=== PATIENT | male | born 1945 | race Caucasian/White ===

== ENCOUNTER → 2018-08-10 | Outpatient (CLI) | payer MEDICARE, OTHER ==
--- NOTE | 2018-08-10 14:48 | RADIOLOGY REPORT (SQ) ---
EXAM DESCRIPTION: NM 3 PHASE BONE SCAN COMPLETED DATE/TIME: 08/10/2018 2:30 pm REASON FOR STUDY: STRESS FX, RT FOOT, INITIAL ENCOUNTER FOR FRACTURE (M84.374A), PAIN IN RIGH M84.37 4A STRESS FRACTURE, RIGHT FOOT, INITIAL ENCOUNTER FOR M79.671 PAIN IN RIGHT FOOT COMPARISON: Outside plain films 08/03/2018 RADIONUCLIDE AND DOSE: 19.4 millicuries Tc99m MDP. The route of agent administration: Intravenous. ADDITIONAL DRUGS AND DOSES: None. TECHNIQUE: Following injection of the radiopharmaceutical, serial blood flow images acquired. Equil ibrium blood pool images then acquired. Routine delayed images at 3 hours acquired of the bilateral feet focused images as needed. AREA OF INTEREST: Bilateral feet LIMITATIONS: None. FINDINGS: VASCULAR FLOW IMAGES: No asymmetry or focal areas of hyperemia. BLOOD POOL IMAGES: There is increased uptake in the right midfoot along the 2nd metatarsal. BONES: Delayed images of the feet demonstrate focal increased uptake along the proximal diaphysis 2nd metatarsal worrisome for stress fracture. There is mild increased uptake over the 1st and 2nd MTP joints. Minimal increased uptake along the p lantar aspect right calcaneus. OTHER: No other significant finding. IMPRESSION: Findings worrisome for 2nd metatarsal stress fracture COMMENT: Quality measure 147: Current bone scan is compared with any available plain radiographs, p rior bone scans, and CT/MRI. TECHNICAL DOCUMENTATION: JOB ID: [id number] [email or web address] All Rights Reserved Reading location - IP/workstation name: [email or web address]
== END ==
LOC: RAD 10:09
PROVIDERS: ATTEND Podiatrist Foot Surgery
DX: M84.374A Stress fracture, right foot, initial encounter for fracture (principal); M79.671 Pain in right foot
CPT/HCPCS: 78315; A9561